=== PATIENT | female | born 1930 | race Caucasian/White ===

== ENCOUNTER 2017-12-24 21:37 | Inpatient (IN) | payer OTHER ==
[~2017-12-24] VITALS: Ht 154.9 cm; Wt 58.6 kg
[~2017-12-24 21:37] MED LIST: ASPI-319 PO; ATEN-173 PO; ATV5 PO; CARB200T PO; CHOL100010 PO; CLTP PO; FRS/40 PO; LEVO125T39 PO; LISI10TA PO; MECL25TA2 PO; SERT-234 PO
[2017-12-24] MEDS ORDERED: ONDANSETRON INJ 2 MG/ML 2 ML VIAL IV STA (21:57)
[2017-12-24] MEDS ORDERED: MoRPHine SULFATE 4 MG/ML 1 ML CARP\\VIAL IV STA (21:57)
[2017-12-24] MEDS ORDERED: PRED10TA PO (22:40)
[2017-12-24] MEDS ORDERED: CALCTAB7 PO (22:40)
[2017-12-24] MEDS ORDERED: TNR50 PO (22:40)
[2017-12-24] MEDS ORDERED: LEVO125T72 PO (22:40)
[2017-12-24] MEDS ORDERED: OMEP-331 PO (22:40)
[2017-12-24] MEDS ORDERED: MECL1TAB42 PO (22:40)
[2017-12-24] MEDS ORDERED: ACET1TAB84 PO (22:40)
[2017-12-24] MEDS ORDERED: ATV5 PO (22:40)
[2017-12-24] MEDS ORDERED: TRAM-10 PO (22:40)
[2017-12-24] MEDS ORDERED: CHOL1CAP27 PO (22:40)
[2017-12-24 22:49] LABS: BASO % 0.1 %; BASO ABS # 0.01 K/uL (0-0.2); EOS % 1.1 %; EOS ABS # 0.12 K/uL (0-0.5); HEMATOCRIT 30.2 % (37-47); IG# 0.05 K/uL (0.00-0.02); LYMPH ABS # 1.26 K/uL (1.2-3.4); MEAN CELL VOLUME 90.4 fL (80-100); MEAN CORPUSCULAR HEMOGLOBIN 29.9 pg (25-34); MEAN CORPUSCULAR HGB CONC 33.1 g/dl (32-36); MEAN PLATELET VOLUME 8.8 fL (7.4-10.4); MONO % 10.5 %; NEUT % 76.9 %; NEUT ABS # 8.77 K/uL (1.4-6.5); PLATELET COUNT 226 K/uL (130-400); RED CELL DISTRIBUTION WIDTH CV 14.1 % (11.5-14.5); RED CELL DISTRIBUTION WIDTH SD 47.1 fL (36.4-46.3); WHITE BLOOD COUNT 11.41 K/uL (4.8-10.8)
[2017-12-24 22:50] LABS: ALBUMIN 3.1 gm/dl (3.4-5.0); CALCIUM 8.6 mg/dl (8.5-10.1); CREATININE 1.15 mg/dl (0.60-1.20); POTASSIUM 4.2 mmol/L (3.5-5.1)
[2017-12-24 22:53] LABS: TOTAL PROTEIN 6.6 gm/dl (6.4-8.2)
--- NOTE | 2017-12-24 23:11 | DIAGNOSTIC IMAGING REPORT ---
SINGLE VIEW PELVIS; 2 VIEWS RIGHT HIP CLINICAL HISTORY: Right hip pain. Fall. FINDINGS: An AP view of the pelvis with AP and frog-leg views of the right hip and femur are obtained. No prior studies are available for comparison at the time of dictation. The skeletal structures are osteopenic. Subtle nondistracted right pubic ring fractures are suspected. There are chronic appearing left pubic ring fractures. There is chronic posttraumatic deformity of the right femoral shaft with intertrochanteric and intramedullary nails in place. There is no radiographic evidence of right femoral fracture. Orthopedic hardware appears intact. The left hip is intact as imaged. Moderate arthritic change and joint space narrowing is seen in the hips. Lumbosacral spondylosis is partially visualized. Sclerotic change is noted in the sacroiliac joints. There are numerous pelvic phleboliths. No bowel obstruction is seen. The soft tissues of the right thigh are normal as imaged. IMPRESSION: 1. Suspect acute nondistracted right pubic ring fractures. 2. No additional acute fracture is identified involving the hips or bony pelvis. 3. Chronic posttraumatic deformity and postoperative change is noted in the right femur. 4. Osteopenia and degenerative change as above. Electronically signed by: Avel Cook M.D. 12/24/2017 11:10 PM Dictated Date/Time: 12/24/2017 11:06 PM
--- NOTE | 2017-12-24 23:13 | DIAGNOSTIC IMAGING REPORT ---
LUMBAR SPINE 3 VIEWS CLINICAL HISTORY: Fall. FINDINGS: AP, lateral, and coned-down views of the lumbar spine are obtained. No prior studies are available for comparison at the time of dictation. The skeletal structures are osteopenic. There is a moderate and age indeterminant compression deformity of L1. No retropulsed fragments are identified. Vertebral body height is otherwise maintained throughout the lumbar spine. Minimal anterolisthesis is seen at L4-L5. Alignment is otherwise preserved. Hyperlordosis is noted. Anterior osteophytes are seen throughout. The transverse and spinous processes are intact as visualized. There is mild to moderate lumbar levocurvature centered at L3. Advanced facet arthropathy seen in the lower lumbar region. There is mild to moderate disc space narrowing seen at all lumbar levels. The bony pelvis is intact as imaged. Sclerotic change is noted in the sacroiliac joints. Compression deformities are also seen in the lower thoracic spine. No bowel obstruction is identified. Cholecystectomy clips are observed. The heart is enlarged. IMPRESSION: 1. There is a moderate and age indeterminant compression deformity of L1. Additional age indeterminant compression deformities are noted in the lower thoracic spine on the frontal view. Clinical correlation will be required. 2. Osteopenia with lumbosacral spondylosis and scoliosis as above. Electronically signed by: Avel Cook M.D. 12/24/2017 11:12 PM Dictated Date/Time: 12/24/2017 11:10 PM
--- NOTE | 2017-12-24 23:20 | DIAGNOSTIC IMAGING REPORT ---
SINGLE VIEW CHEST CLINICAL HISTORY: Fall. FINDINGS: An AP, portable, upright chest radiograph is compared to study dated 05/11/2010. The examination is degraded by portable technique and apical lordotic positioning. The heart is enlarged and there is atherosclerotic calcification of the thoracic aorta. The pulmonary vasculature is noncongested. Chronic interstitial thickening is similar to previous. There is left basilar atelectasis. No airspace consolidation or large pleural effusion is identified. No pneumothorax is seen. The skeletal structures are osteopenic. There is chronic posttraumatic deformity of the proximal humeri with advanced degenerative change involving the shoulders. Degenerative change and scoliosis are noted in the thoracic spine. Cholecystectomy clips are identified in the right upper quadrant. IMPRESSION: Cardiomegaly with no acute cardiopulmonary abnormality. Electronically signed by: Avel Cook M.D. 12/24/2017 11:18 PM Dictated Date/Time: 12/24/2017 11:17 PM
[2017-12-25] VITALS (10 sets, daily range): BP systolic 67–149; BP diastolic 34–75; PULSE 67–88; TEMP 36.7–37.2; O2SAT 90–98; Ht 154.9 cm; Wt 58.6 kg
[2017-12-25] MEDS ORDERED: FUROSEMIDE 20 MG TAB PO PRN (00:30)
[2017-12-25] MEDS ORDERED: ONDANSETRON INJ 2 MG/ML 2 ML VIAL IV PRN (00:30)
[2017-12-25] MEDS ORDERED: TRAMADOL HCL 50 MG TAB PO PRN (00:30)
[2017-12-25] MEDS ORDERED: MoRPHine SULFATE 2 MG/ML CARP IV PRN (00:30)
[2017-12-25] MEDS ORDERED: POLYETHYLENE (MIRALAX) 17 GM PACK PO PRN (00:30)
[2017-12-25] MEDS ORDERED: SODIUM CHLORIDE 0.9% 1000ML 1,000 ML IV SCH (00:30)
[2017-12-25] MEDS ORDERED: ALUMINUM/MAGNESIUM/SIMETH (MAALOX MAX) 30 ML UDC PO PRN (00:30)
[2017-12-25] MEDS ORDERED: MECLIZINE HCL 25 MG TAB PO PRN (00:30)
[2017-12-25] MEDS ORDERED: CARB200T PO (00:32)
[2017-12-25] MEDS ORDERED: ATV5 PO (00:32)
--- NOTE | 2017-12-25 00:44 | EMERGENCY ROOM VISIT NOTE ---
History Report prepared by Yvette: Cricket Guerrero Under the Supervision of: Dr. Zain Nieves D.O. First contact with patient: 21:46 Chief Complaint: FALL Stated Complaint: FALL, HIP/PELVIC PAIN History of Present Illness The patient is a 87 year old female who presents to the Emergency Room following a falling episode that occurred immediately prior to arrival. The patient states that she was "hanging clothes in her closet" when she lost her balance and suffered a mechanical fall. The patient is complaining of constant pain in the right groin and right pelvic area. Pain is a 0 out of 10 without movement. She is unable to walk. She was not able to ambulate following the fall. She did not hit her head, and is not currently having head or neck pain. She is not on any blood thinners. She denies any change in vision, fevers, chest pain, shortness of breath, nausea, vomiting, diarrhea, pain with urination , and melena Source of History: patient Onset: Immediatley prior to arrival Position: leg (right groin, hip, pelvis) Quality: other (Right hip pain from traumatic fall) Timing: constant Associated Symptoms: No LOC, No headache, No neck pain Review of Systems See HPI for pertinent positives & negatives. A total of 10 systems reviewed and were otherwise negative. Past Medical & Surgical Medical Problems: (1) Fall (2) Hypertension (3) Pelvic fracture Surgical Problems: (1) History of cholecystectomy Hypertension Family History Diabetes mellitus Heart disease Hypertension Social History Smoking Status: Never Smoker Drug Use: none Occupation Status: retired Current/Historical Medications Scheduled Acetaminophen (Tylenol Arthritis Ext Rel), 650 MG PO HS Aspirin Enteric Coated (Ecotrin Or Generic), 81 MG PO DAILY Atenolol (Atenolol), 25 MG PO QAM Calcium Carbonate-Vitamin D W/ (Caltrate 600 Plus), 1 TAB PO BID Carbamazepine (Tegretol), 100 MG PO BID Cholecalciferol (D3), 1,000 UNITS PO QAM Levothyroxine Sodium (Synthroid), 125 MCG PO QAM Lisinopril (Prinivil), 5 MG PO QAM Omeprazole (Omeprazole Dr), 20 MG PO QAM Prednisone (Prednisone), Unknown Dose PO DAILY Sertraline (Zoloft), 1 TAB PO DAILY Scheduled PRN Furosemide (Lasix), 0.5-1 TAB PO DAILY PRN for FLUID RETENTION Lorazepam (Lorazepam), 0.5 MG PO BID PRN for Anxiety/Insomnia Meclizine Hcl (Meclizine Hcl), 25 MG PO TID PRN for Dizziness or Vertigo Tramadol (Ultram), 50 MG PO Q6H PRN for Migraine Allergies Coded Allergies: NO KNOWN DRUG ALLERGIES (Verified Allergy, Unknown, ., 12/25/17) Anesthetics, Amide (Verified Adverse Reaction, Intermediate, ANESTHETICS - - "makes me sick", 12/25/17) Physical Exam Vital Signs Date Time Temp Pulse Resp B/P (MAP) Pulse Ox O2 Delivery O2 Flow Rate FiO2 12/24/17 23:01 65 14 129/65 98 Room Air 12/24/17 22:17 66 12/24/17 21:43 36.7 72 20 126/68 96 Room Air Physical Exam GENERAL: alert, well appearing, well nourished, no distress, non-toxic HEAD: normal cephalic, atraumatic EYE EXAM: normal conjunctiva, PERRL and EOM's grossly intact OROPHARYNX: no exudate, no erythema, lips, buccal mucosa, and tongue normal and mucous membranes are moist EARS: TMs clear b/l NECK: supple, no nuchal rigidity, no adenopathy, non-tender CHEST: stable to compression anteriorly and posteriorly LUNGS: clear to auscultation. Normal chest wall mechanics HEART: no murmurs, S1 normal and S2 normal ABDOMEN: abdomen soft, non-tender, normo-active bowel sounds, no masses, no rebound or guarding. PELVIS: Tender to palpation over right pubic ring. BACK: Back is symmetrical on inspection and there is no deformity, no midline tenderness, no CVA tenderness. UPPER EXTREMITIES: full active and passive range of motion of all joints without tenderness to palpation LOWER EXTREMITIES: full active and passive range of motion of all joints without tenderness to palpation NEURO EXAM: Normal sensorium, cranial nerves II-XII grossly intact, normal speech, no gross weakness of arms, no gross weakness of legs. GCS: 15. Medical Decision & Procedures ER Provider Diagnostic Interpretation: Radiology results as stated below per my review and the radiologist's interpretation: SINGLE VIEW PELVIS; 2 VIEWS RIGHT HIP CLINICAL HISTORY: Right hip pain. Fall. FINDINGS: An AP view of the pelvis with AP and frog-leg views of the right hip and femur are obtained. No prior studies are available for comparison at the time of dictation. The skeletal structures are osteopenic. Subtle nondistracted right pubic ring fractures are suspected. There are chronic appearing left pubic ring fractures. There is chronic posttraumatic deformity of the right femoral shaft with intertrochanteric and intramedullary nails in place. There is no radiographic evidence of right femoral fracture. Orthopedic hardware appears intact. The left hip is intact as imaged. Moderate arthritic change and joint space narrowing is seen in the hips. Lumbosacral spondylosis is partially visualized. Sclerotic change is noted in the sacroiliac joints. There are numerous pelvic phleboliths. No bowel obstruction is seen. The soft tissues of the right thigh are normal as imaged. IMPRESSION: 1. Suspect acute nondistracted right pubic ring fractures. 2. No additional acute fracture is identified involving the hips or bony pelvis. 3. Chronic posttraumatic deformity and postoperative change is noted in the right femur. 4. Osteopenia and degenerative change as above. Electronically signed by: Avel Cook M.D. 12/24/2017 11:10 PM Dictated Date/Time: 12/24/2017 11:06 PM SINGLE VIEW CHEST CLINICAL HISTORY: Fall. FINDINGS: An AP, portable, upright chest radiograph is compared to study dated 05/11/2010. The examination is degraded by portable technique and apical lordotic positioning. The heart is enlarged and there is atherosclerotic calcification of the thoracic aorta. The pulmonary vasculature is noncongested. Chronic interstitial thickening is similar to previous. There is left basilar atelectasis. No airspace consolidation or large pleural effusion is identified. No pneumothorax is seen. The skeletal structures are osteopenic. There is chronic posttraumatic deformity of the proximal humeri with advanced degenerative change involving the shoulders. Degenerative change and scoliosis are noted in the thoracic spine. Cholecystectomy clips are identified in the right upper quadrant. IMPRESSION: Cardiomegaly with no acute cardiopulmonary abnormality. Electronically signed by: Avel Cook M.D. 12/24/2017 11:18 PM Dictated Date/Time: 12/24/2017 11:17 PM LUMBAR SPINE 3 VIEWS CLINICAL HISTORY: Fall. FINDINGS: AP, lateral, and coned-down views of the lumbar spine are obtained. No prior studies are available for comparison at the time of dictation. The skeletal structures are osteopenic. There is a moderate and age indeterminant compression deformity of L1. No retropulsed fragments are identified. Vertebral body height is otherwise maintained throughout the lumbar spine. Minimal anterolisthesis is seen at L4-L5. Alignment is otherwise preserved. Hyperlordosis is noted. Anterior osteophytes are seen throughout. The transverse and spinous processes are intact as visualized. There is mild to moderate lumbar levocurvature centered at L3. Advanced facet arthropathy seen in the lower lumbar region. There is mild to moderate disc space narrowing seen at all lumbar levels. The bony pelvis is intact as imaged. Sclerotic change is noted in the sacroiliac joints. Compression deformities are also seen in the lower thoracic spine. No bowel obstruction is identified. Cholecystectomy clips are observed. The heart is enlarged. IMPRESSION: 1. There is a moderate and age indeterminant compression deformity of L1. Additional age indeterminant compression deformities are noted in the lower thoracic spine on the frontal view. Clinical correlation will be required. 2. Osteopenia with lumbosacral spondylosis and scoliosis as above. Electronically signed by: Avel Cook M.D. 12/24/2017 11:12 PM Dictated Date/Time: 12/24/2017 11:10 PM Laboratory Results 12/24/17 22:10 Red Blood Count 3.34, Mean Corpuscular Volume 90.4, Mean Corpuscular Hemoglobin 29.9, Mean Corpuscular Hemoglobin Concent 33.1, Mean Platelet Volume 8.8, Neutrophils (%) (Auto) 76.9, Lymphocytes (%) (Auto) 11.0, Monocytes (%) (Auto) 10.5, Eosinophils (%) (Auto) 1.1, Basophils (%) (Auto) 0.1, Neutrophils # (Auto ) 8.77, Lymphocytes # (Auto) 1.26, Monocytes # (Auto) 1.20, Eosinophils # (Auto ) 0.12, Basophils # (Auto) 0.01 12/24/17 22:10 Test 12/24/17 22:10 White Blood Count 11.41 K/uL (4.8-10.8) Red Blood Count 3.34 M/uL (4.2-5.4) Hemoglobin 10.0 g/dL (12.0-16.0) Hematocrit 30.2 % (37-47) Mean Corpuscular Volume 90.4 fL (80-100) Mean Corpuscular Hemoglobin 29.9 pg (25-34) Mean Corpuscular Hemoglobin Concent 33.1 g/dl (32-36) Platelet Count 226 K/uL (130-400) Mean Platelet Volume 8.8 fL (7.4-10.4) Neutrophils (%) (Auto) 76.9 % Lymphocytes (%) (Auto) 11.0 % Monocytes (%) (Auto) 10.5 % Eosinophils (%) (Auto) 1.1 % Basophils (%) (Auto) 0.1 % Neutrophils # (Auto) 8.77 K/uL (1.4-6.5) Lymphocytes # (Auto) 1.26 K/uL (1.2-3.4) Monocytes # (Auto) 1.20 K/uL (0.11-0.59) Eosinophils # (Auto) 0.12 K/uL (0-0.5) Basophils # (Auto) 0.01 K/uL (0-0.2) RDW Standard Deviation 47.1 fL (36.4-46.3) RDW Coefficient of Variation 14.1 % (11.5-14.5) Immature Granulocyte % (Auto) 0.4 % Immature Granulocyte # (Auto) 0.05 K/uL (0.00-0.02) Anion Gap 5.0 mmol/L (3-11) Est Creatinine Clear Calc Drug Dose 28.9 ml/min Estimated GFR () 49.5 Estimated GFR (Non- 42.7 BUN/Creatinine Ratio 33.0 (10-20) Calcium Level 8.6 mg/dl (8.5-10.1) Total Bilirubin 0.4 mg/dl (0.2-1) Direct Bilirubin 0.1 mg/dl (0-0.2) Aspartate Amino Transf (AST/SGOT) 14 U/L (15-37) Alanine Aminotransferase (ALT/SGPT) 19 U/L (12-78) Alkaline Phosphatase 54 U/L (45-117) Total Protein 6.6 gm/dl (6.4-8.2) Albumin 3.1 gm/dl (3.4-5.0) Laboratory results per my review. Medications Administered Medications (Trade) Dose Ordered Sig/Gris Route Start Time Stop Time Status Last Admin Dose Admin Morphine Sulfate (MoRPHine SULFATE INJ) 4 mg NOW STAT IV 12/24/17 21:57 12/24/17 21:58 DC 12/24/17 22:15 4 MG Ondansetron HCl (Zofran Inj) 4 mg NOW STAT IV 12/24/17 21:57 12/24/17 21:58 DC 12/24/17 22:15 4 MG ED Course ED COURSE: Vital signs were reviewed and showed normal vitals. The patients medical record was reviewed The above diagnostic studies were performed and reviewed. ED treatments and interventions as stated above. 2150: The patient was evaluated in room A4B. A complete history and physical examination was performed. 2156: Ordered Zofran 4 mg IV, Morphine Sulfate 4 mg IV. 2337: I discussed the case with Dr. Bettye Burnham. she will evaluate for further treatment. 0005: I discussed the case with Dr. [facility]. 0010: Upon reevaluation, the patient is resting in bed.I discussed my findings with the patient and she understands and agrees with the treatment plan. Based on the patients age, coexisting illnesses, exam and lab findings the decision to treat as an inpatient was made. The patient remained stable while under my care. The patient will be evaluated for further management. Medical Decision Differential diagnoses include major intracranial, cervical, spinal, thoracic, abdominal, pelvic and neurologic injury. Fracture, contusion, sprain, strain, laceration, abrasions included as well. Patient is a 87-year-old female who presents the ER after mechanical fall onto her right hip. She denies any head trauma or neck pain. CBC along with BMP, LFTs are unremarkable. No blood thinners which she declines. X-rays of the pelvis and hip show a right pubic ring fracture. Questionable L1 compression fracture as well. Patient was given IV narcotics. She is unable to ambulate. She was discussed with orthopedics and internal medicine for observation. Medication Reconcilliation Current Medication List: was personally reviewed by me Blood Pressure Screening Patient's blood pressure: Normal blood pressure Consults Time Called: 2334 Consulting Physician: Dr. Bettye Burnham Returned Call: [phone] I discussed the case with Dr. Bettye Burnham. she will evaluate for further treatment. Additional Consults: Time Called: 0000 Consulted Physician: Dr. [facility] Returned Call: 0005 Additional Comments: I discussed the case with Dr. Willis - Orthopedics. Impression Primary Impression: Pubic ramus fracture Additional Impression: Compression fracture Scribe Attestation The scribe's documentation has been prepared under my direction and personally reviewed by me in its entirety. I confirm that the note above accurately reflects all work, treatment, procedures, and medical decision making performed by me. Departure Information Dispostion Being Evaluated By Hospitalist Prescriptions Lorazepam (Lorazepam) 0.5 Mg Tab 0.5 MG PO BID Y for Anxiety/Insomnia, #10 Prov: Angus Wen MD 12/25/17 Carbamazepine (Tegretol) 200 Mg Tab 100 MG PO BID, #14 Prov: Angus Wen MD 12/25/17 Referrals Lucas Marks M.D. (PCP) Patient Instructions My [facility] Problem Qualifiers Primary Impression: Pubic ramus fracture Encounter type: initial encounter Fracture type: closed Laterality: right Qualified Codes: S32.591A - Other specified fracture of right pubis, initial encounter for closed fracture
--- NOTE | 2017-12-25 02:44 | HISTORY & PHYSICAL EXAMINATION ---
DATE OF ADMISSION: 12/25/2017 CHIEF COMPLAINT: Status post fall and pelvic fracture. HISTORY OF PRESENT ILLNESS: This is an 87-year-old female with past medical history significant for depression, anxiety, hypothyroidism, trigeminal neuralgia, senile osteoporosis, hypertension, migraines, osteoarthritis of multiple joints, anxiety trait, Raynaud's syndrome, and now chronic kidney disease stage III, hiatal hernia, history of compression fracture of the spine, anemia of chronic renal failure, now presents with fall and pelvic fracture. Patient says she was in her closet putting her clothes when she accidentally slipped and fell down and no loss of consciousness, but when she wanted to get up, there was severe pain in her right groin region and she was brought to the ER and imaging showed acute nondisplaced right pubic ring fractures and lumbar spine x-ray shows age indeterminate compression fracture of L1. Patient is received morphine in the ER and currently pain is under control. Patient denies any headaches. No dizziness, no blurred visions, no earache, no runny nose, no sore throat, no difficulty swallowing. No chest pain, no shortness of breath, no cough, no fever, no chills, no nausea, no vomiting, no abdominal pain. Appetite is okay. Ambulates with a cane when she goes outside, but at home she ambulates without any help. Sometimes she has runny bowel movements but no blood in the stools. Normal bladder movements. No blood in the urine. No burning micturition. No swelling of the legs. No skin rash. Currently, resting comfortably and hemodynamically stable. ALLERGIES: ANESTHETICS. PAST MEDICAL HISTORY: As mentioned above. PAST SURGICAL HISTORY: Repair of the right femur fracture, laparoscopic cholecystectomy, open reduction internal fixation of the malunited angulated distal radius fracture. MEDICATIONS: Patient currently on Maalox as needed, aspirin 81 mg p.o. daily, atenolol 25 mg p.o. daily, calcium, Tums 500 mg p.o. b.i.d. p.r.n., Caltrate 600+ tablets daily, Tegretol 100 mg p.o. b.i.d., Lasix 20 mg p.o. daily p.r.n., levothyroxine 125 mcg p.o. daily, lisinopril 5 mg p.o. daily, Ativan 0.5 mg p.o. b.i.d. p.r.n., omeprazole 20 mg p.o. daily, Phenergan 25 mg p.o. q. 6 hours p.r.n., Zoloft 100 mg p.o. daily, tramadol 50 mg p.o. q. 6 hours p.r.n., Tylenol Arthritis 650 mg p.o. at bedtime, vitamin D 1000 units p.o. daily. FAMILY HISTORY: Significant for mother had diabetes, heart disorder, hypertension, thyroid disorder. Father had heart disorder. Daughter has hypertension, son has depression. SOCIAL HISTORY: Currently living with her son. No smoke history, no alcohol history, no drug use. REVIEW OF SYMPTOMS: As per HPI. Rest of review of symptoms negative. PHYSICAL EXAMINATION: GENERAL: Patient is old and frail, not in distress. VITAL SIGNS: Temperature 36.7, pulse 65, respiratory rate 14, blood pressure 127/65, oxygen 98% room air. HEENT: No pallor, no icterus. Pupils equal, round, and reactive to light. NECK: No JVD, no neck masses, no carotid bruit. CARDIOVASCULAR: S1, S2 heard. Regular rate and rhythm, no murmur, no gallop. RESPIRATORY SYSTEM: Clear to auscultation bilaterally. No wheezing, no crackles. ABDOMEN: Soft, bowel sounds present, nontender. No distention. CENTRAL NERVOUS SYSTEM: Cranial nerves II-XII grossly intact. Nonfocal. EXTREMITIES: No edema, no erythema. Able to lift her left upper extremity, but not able to lift her right lower extremity. LABORATORY DATA: WBC 11.4, hemoglobin 10, hematocrit 30.2, platelets 226. Sodium 136, potassium 4.2, chloride 103, bicarb 28, BUN 38, creatinine 1.1, serum glucose 117, calcium 8.6, total bilirubin 0.4, direct bilirubin 0.1, AST 14, ALT 19, alkaline phosphatase 54. IMAGING DATA: Lumbar spine x-ray, moderate and age-indeterminate compression deformity of L1. Chest x-ray, cardiomegaly, no acute pulmonary disease, no acute findings. Hip and pelvic x-ray shows acute nondisplaced right pubic ring fractures. No additional acute fracture identified in hips or bony pelvis. Chronic posttraumatic deformity and postoperative changes noted in the right femur. Osteopenia and degenerative changes . ASSESSMENT AND PLAN: This 87-year-old female presents status post mechanical fall and right pelvic fracture. 1. Status post mechanical fall, right pelvic fracture. Patient has history of fall in the past and states around 2009 and has had right femur fracture and also at that time had left left radius fracture. Lives with her son. She just ambulates okay at home. pain control, PT/OT. Ortho consult for further recommendation and social service to help with discharge planning. Monitor in the medical floor. 2. History of hypertension. Continue her atenolol and lisinopril. We will monitor the blood pressure. 3. History of depression and anxiety. Continue Zoloft and Ativan p.r.n. 4. History of migraine, on tramadol p.r.n. 5. History of chronic kidney disease stage III. We will follow the labs. 6. History of anemia of chronic disease. Hemoglobin is around 10 which is around baseline. We will monitor the labs. 7. History of trigeminal neuralgia, on Tegretol. 8. Deep venous thrombosis prophylaxis, heparin subQ. 9. Disposition: Admit to medical floor. PT/OT prior to discharge and social service to help with discharge planning. 10. Code status. Patient does not want to talk about it presently as she now got morphine. She will be full code for now. MTDD
[2017-12-25 05:10] LABS: BASO % 0.2 %; BASO ABS # 0.02 K/uL (0-0.2); EOS % 3.7 %; EOS ABS # 0.36 K/uL (0-0.5); HEMATOCRIT 30.5 % (37-47); HEMOGLOBIN 9.9 g/dL (12.0-16.0); IG# 0.02 K/uL (0.00-0.02); LYMPH % 18.2 %; LYMPH ABS # 1.76 K/uL (1.2-3.4); MEAN CELL VOLUME 90.5 fL (80-100); MEAN CORPUSCULAR HEMOGLOBIN 29.4 pg (25-34); MEAN CORPUSCULAR HGB CONC 32.5 g/dl (32-36); MEAN PLATELET VOLUME 8.4 fL (7.4-10.4); MONO % 9.6 %; MONO ABS # 0.93 K/uL (0.11-0.59); NEUT % 68.1 %; PLATELET COUNT 194 K/uL (130-400); RED CELL DISTRIBUTION WIDTH CV 14.4 % (11.5-14.5); RED CELL DISTRIBUTION WIDTH SD 47.8 fL (36.4-46.3); WHITE BLOOD COUNT 9.69 K/uL (4.8-10.8)
[2017-12-25 05:46] LABS: CALCIUM 8.9 mg/dl (8.5-10.1); CREATININE 1.02 mg/dl (0.60-1.20); POTASSIUM 4.5 mmol/L (3.5-5.1)
[2017-12-25] MEDS: LEVOTHYROXINE 125 MCG TAB PO SCH (06:08)
[2017-12-25] MEDS: HEPARIN SOD 5000 UNIT/0.5 ML CARP SQ SCH ×2 (06:26→21:02)
[2017-12-25] MEDS: ASPIRIN 81 MG ECTAB PO SCH (08:55)
[2017-12-25] MEDS: PANTOprazole SOD 40 MG TAB PO SCH (08:55)
[2017-12-25] MEDS: LORAZEPAM 0.5 MG TAB PO PRN ×2 (08:55→21:01)
[2017-12-25] MEDS: TRAMADOL HCL 50 MG TAB PO PRN (08:55)
[2017-12-25] MEDS: CHOLECALCIFEROL 1000 INTER.UNIT TAB PO SCH (08:55)
[2017-12-25] MEDS: CARBAMAZEPINE 200 MG TAB PO SCH ×2 (08:56→20:09)
[2017-12-25] MEDS: SERTRALINE HCL 100 MG TAB PO SCH (08:57)
[2017-12-25] MEDS: CALCIUM 600MG + VIT D 400 IU TAB PO SCH ×2 (08:58→20:08)
[2017-12-25] MEDS ORDERED: LORAZEPAM 0.5 MG TAB PO SCH (09:00)
[2017-12-25] MEDS ORDERED: CARBAMAZEPINE 200 MG TAB PO SCH (09:00)
[2017-12-25] MEDS ORDERED: LISINOPRIL 10 MG TAB PO SCH (09:00)
[2017-12-25] MEDS ORDERED: NURSING VERBAL MED ORDER ONE ×3 (09:30→14:30)
--- NOTE | 2017-12-25 10:26 | CONSULTATION REPORT ---
DATE OF CONSULTATION: 12/25/2017 REASON FOR CONSULT: Pelvic fracture. HISTORY OF PRESENT ILLNESS: The patient is an 87-year-old white female who lives at home with her son and states that yesterday she was putting hangers back up on to a close christin and she was somewhat short and as she tried to reach to put the chart changer up on the christin, she lost her balance and fell on to her right side. She had immediate pain in her groin and was unable to ambulate. She was brought to the Emergency Room, seen by the staff and x-rays were taken. Hip and pelvis films showed the patient is status post a right TFN by Dr. Willis in the past but also showed a minimally displaced right pubic ring fracture. She was thusly admitted for further care. We have been asked to see her for a pelvic fracture. PAST MEDICAL HISTORY: Depression, anxiety, hypothyroidism, trigeminal neuralgia, osteoporosis, hypertension, migraine headaches, osteoarthritis, Raynaud's syndrome, chronic kidney disease stage III, hiatal hernia, history of compression fractures of the spine. PAST SURGICAL HISTORY: Right TFN done in 2009, history of cholecystectomy. She had a closed reduction and application of external fixator to the right wrist in the past, ORIF left proximal humerus fracture. Per her daughter in the past from old records, states that she had brain surgery due to trigeminal neuralgia, cataract removal. FAMILY HISTORY: Mother had diabetes, heart disease, hypertension, thyroid disorder. Father had a history of heart disease. Daughter has hypertension. Son has depression. SOCIAL HISTORY: The patient currently lives with her son whom she states that does work during the day and a daughter who lives just [address] from them. She does not have any history of using tobacco or alcohol. MEDICATIONS: Acetaminophen or Tylenol Arthritis extended release 600 mg p.o. at bedtime, aspirin 81 mg p.o. daily, atenolol 25 mg p.o. q.a.m., Caltrate 600 plus one tab p.o. b.i.d., Tegretol 100 mg p.o. b.i.d., vitamin D 3000 units p.o. q.a.m., furosemide 40 mg half to 1 tab p.o. daily p.r.n. fluid retention, levothyroxine 125 mcg p.o. q.a.m., lisinopril 5 mg p.o. q.a.m., lorazepam 0.5 mg p.o. b.i.d. p.r.n. anxiety, meclizine 25 mg p.o. t.i.d. p.r.n. dizziness or vertigo, omeprazole 20 mg p.o. q.a.m., Medrol Dosepak started on 12/19/2017, sertraline 100 mg p.o. daily, Ultram 50 mg p.o. q. 6 hours p.r.n. migraine headache. ALLERGIES: She states that some anesthesias cause her nausea; otherwise NKDA. REVIEW OF SYSTEMS: As per admitting history and physical. PHYSICAL EXAMINATION: VITAL SIGNS: This morning showed temperature 36.7, pulse 67, respirations 16, BP 129/74, pulse ox 98 on room air. GENERAL: The patient is an elderly white female who appears her stated age and appears comfortable. She is pleasant and cooperative and answers questions appropriately. She is in no acute distress. EXTREMITIES: On examination of her right lower extremity, she has no areas of abrasions or cuts noted from the fall. Taking her through gentle range of motion of the right lower extremity, she is able to undergo internal and external rotation of the hip with minimal discomfort. She is able to gently flex the hip at this time with mild pain; however, has moderate pain with coming back into extension. She has mild pain on abduction of the hip at this time and has increased pain with adduction. She denies right knee pain and has good range of motion of right ankle and toes at this time and denies any decreased sensation. Left lower extremity is essentially benign at this time, it is nontender at the hip, knee and ankle and range of motion is intact. Upper extremities, she notes some discomfort in her shoulders which is normal for her due to arthritis but nothing exacerbated. She is nontender at the elbows and wrist and range of motion of upper extremities is without discomfort to an extent with her shoulders. There is no gross motor or sensory loss at this time. Distal pulses are equal bilaterally of the upper extremities. DIAGNOSIS: Superior and inferior pubic ramus fracture, right side pelvis. PLAN: We will start the patient on physical therapy and occupational therapy, weightbearing as tolerated with a walker and see how she progresses. She will likely need a rehab facility versus jail facility prior to returning home. She is currently on tramadol and Morphine for pain control which could be adjusted as necessary. Thank you for this consult. I examined the patient, performed a thorough physical exam and reviewed her radiographic studies. I agree with the assessment and plan as set forth by Alejandro Crespo PA-C above. Thank you for the opportunity to consult in the care of this patient. Rick TRUONG
[2017-12-25] MEDS ORDERED: SODIUM CHLORIDE 0.9% 500ML 500 ML IV ONE (14:15)
--- NOTE | 2017-12-25 18:44 | Progress Note ---
Medicine Progress Note Date & Time of Visit: Dec 25, 2017 at 18:37. Subjective Please refer to H&P from this AM for more detail: Patient was seen and examined earlier today, daughter did come to the hospital during examination. Patient reports pain controlled at rest but hurts with movements. She has been non-weightbearing on the right today. She is agreeable to rehab if needed but would prefer home if she had a choice. No other complaints noted. After patient saw therapy, I was paged by nursing staff that the patient's bp went low and the patient was asymptomatic and remarked this occurred at home sometimes. Her BP responded to laying supine and Trendelenburg position, and improved further once IV fluids were administered. No other complaints noted. Will hold BP meds for now. Objective Last 8 Hrs Date Time Temp Pulse Resp B/P (MAP) Pulse Ox O2 Delivery O2 Flow Rate FiO2 12/25/17 16:27 99/60 (73) 12/25/17 14:42 37.2 69 16 93/56 (68) 90 Room Air 12/25/17 14:10 88/52 (64) 12/25/17 14:00 84 87/51 (63) 97 Room Air 12/25/17 13:55 81/45 (57) 12/25/17 13:52 78/45 (56) 12/25/17 13:50 67/34 (45) Physical Exam: GENERAL: Patient is in no acute distress. HEENT: No acute trauma, normocephalic, mucous membranes moist, no nasal congestion, no scleral icterus. NECK: No stridor, trachea is midline. LUNGS: Clear to auscultation bilaterally, no wheeze, no rhonchi, breath sounds equal. HEART: Without gallops or rubs, regular rate and rhythm. +loud VINCENT ABDOMEN: Soft, nontender, bowel sounds positive EXTREMITIES: No cyanosis or edema, moves all 4 extremities but pain with sitting up and bending in flexion or movement of her right leg NEUROLOGIC: Oriented x 3, no acute motor or sensory deficits, no focal weakness. SKIN: No rash, no jaundice, no diaphoresis. Laboratory Results: Last 24 Hours Test 12/24/17 22:10 12/25/17 05:03 White Blood Count 11.41 K/uL 9.69 K/uL Red Blood Count 3.34 M/uL 3.37 M/uL Hemoglobin 10.0 g/dL 9.9 g/dL Hematocrit 30.2 % 30.5 % Mean Corpuscular Volume 90.4 fL 90.5 fL Mean Corpuscular Hemoglobin 29.9 pg 29.4 pg Mean Corpuscular Hemoglobin Concent 33.1 g/dl 32.5 g/dl Platelet Count 226 K/uL 194 K/uL Mean Platelet Volume 8.8 fL 8.4 fL Neutrophils (%) (Auto) 76.9 % 68.1 % Lymphocytes (%) (Auto) 11.0 % 18.2 % Monocytes (%) (Auto) 10.5 % 9.6 % Eosinophils (%) (Auto) 1.1 % 3.7 % Basophils (%) (Auto) 0.1 % 0.2 % Neutrophils # (Auto) 8.77 K/uL 6.60 K/uL Lymphocytes # (Auto) 1.26 K/uL 1.76 K/uL Monocytes # (Auto) 1.20 K/uL 0.93 K/uL Eosinophils # (Auto) 0.12 K/uL 0.36 K/uL Basophils # (Auto) 0.01 K/uL 0.02 K/uL RDW Standard Deviation 47.1 fL 47.8 fL RDW Coefficient of Variation 14.1 % 14.4 % Immature Granulocyte % (Auto) 0.4 % 0.2 % Immature Granulocyte # (Auto) 0.05 K/uL 0.02 K/uL Sodium Level 136 mmol/L 135 mmol/L Potassium Level 4.2 mmol/L 4.5 mmol/L Chloride Level 103 mmol/L 105 mmol/L Carbon Dioxide Level 28 mmol/L 28 mmol/L Anion Gap 5.0 mmol/L 2.0 mmol/L Blood Urea Nitrogen 38 mg/dl 34 mg/dl Creatinine 1.15 mg/dl 1.02 mg/dl Est Creatinine Clear Calc Drug Dose 28.9 ml/min 32.0 ml/min Estimated GFR () 49.5 57.3 Estimated GFR (Non- 42.7 49.4 BUN/Creatinine Ratio 33.0 33.8 Random Glucose 117 mg/dl 102 mg/dl Calcium Level 8.6 mg/dl 8.9 mg/dl Total Bilirubin 0.4 mg/dl Direct Bilirubin 0.1 mg/dl Aspartate Amino Transf (AST/SGOT) 14 U/L Alanine Aminotransferase (ALT/SGPT) 19 U/L Alkaline Phosphatase 54 U/L Total Protein 6.6 gm/dl Albumin 3.1 gm/dl Prothrombin Time 10.6 SECONDS Prothromb Time International Ratio 1.0 Assessment & Plan From H&P this AM: 1. Status post mechanical fall, right pelvic fracture. Patient has history of fall in the past and states around 2009 and has had right femur fracture and also at that time had left left radius fracture. Lives with her son. She just ambulates okay at home. pain control, PT/OT. Ortho consult for further recommendation and social service to help with discharge planning. Monitor in the medical floor. 2. History of hypertension. Continue her atenolol and lisinopril. We will monitor the blood pressure. 3. History of depression and anxiety. Continue Zoloft and Ativan p.r.n. 4. History of migraine, on tramadol p.r.n. 5. History of chronic kidney disease stage III. We will follow the labs. 6. History of anemia of chronic disease. Hemoglobin is around 10 which is around baseline. We will monitor the labs. 7. History of trigeminal neuralgia, on Tegretol. Current Inpatient Medications: Current Inpatient Medications Medications (Trade) Dose Ordered Sig/Gris Route Start Time Stop Time Status Last Admin Dose Admin Heparin Sodium (Porcine) (Heparin Sq 5000 Unit/0.5ml) 5,000 unit Q8 SQ 12/25/17 06:00 01/24/18 05:59 Future hold 12/25/17 06:26 5,000 UNIT Acetaminophen (Tylenol Tab) 650 mg Q4H PRN PO 12/25/17 00:30 01/24/18 00:29 Al Hydrox/Mg Hydrox/Simethicone (Maalox Max Susp) 15 ml Q4H PRN PO 12/25/17 00:30 01/24/18 00:29 12/25/17 18:25 15 ML Polyethylene (Miralax Powder Packet) 17 gm DAILY PRN PO 12/25/17 00:30 01/24/18 00:29 Ondansetron HCl (Zofran Inj) 4 mg Q6H PRN IV 12/25/17 00:30 01/24/18 00:29 Aspirin (Ecotrin Tab) 81 mg DAILY PO 12/25/17 09:00 01/24/18 08:59 12/25/17 08:55 81 MG Calcium/Vitamin D (Caltrate Plus Tab) 1 tab BID PO 12/25/17 09:00 01/24/18 08:59 12/25/17 08:58 1 TAB Furosemide (Lasix Tab) 20 mg DAILY PRN PO 12/25/17 00:30 01/24/18 00:29 Levothyroxine Sodium (Synthroid Tab) 125 mcg DAILYBB PO 12/25/17 06:00 01/24/18 05:59 12/25/17 06:08 125 MCG Lisinopril (Zestril Tab) 5 mg QAM PO 12/25/17 09:00 01/24/18 08:59 Future Hold 12/25/17 08:56 5 MG Meclizine HCl (Antivert Tab) 25 mg TID PRN PO 12/25/17 00:30 01/24/18 00:29 Sertraline HCl (Zoloft Tab) 100 mg DAILY PO 12/25/17 09:00 01/24/18 08:59 12/25/17 08:57 100 MG Tramadol HCl (Ultram Tab) 50 mg Q6H PRN PO 12/25/17 00:30 01/24/18 00:29 12/25/17 08:55 50 MG Cholecalciferol (Vitamin D Tab) 1,000 inter.unit QAM PO 12/25/17 09:00 01/24/18 08:59 12/25/17 08:55 1,000 INTER.UNIT Pantoprazole Sodium (Protonix Tab) 40 mg QAM PO 12/25/17 09:00 01/24/18 08:59 12/25/17 08:55 40 MG Morphine Sulfate (MoRPHine SULFATE INJ) 2 mg Q4 PRN IV 12/25/17 00:30 01/08/18 00:29 Carbamazepine (Tegretol Tab) 100 mg BID PO 12/25/17 09:00 01/24/18 08:59 12/25/17 08:56 100 MG Lorazepam (Ativan Tab) 0.5 mg BID PRN PO 12/25/17 00:45 01/24/18 00:44 12/25/17 08:55 0.5 MG Atenolol (Tenormin Tab) 25 mg QPM PO 12/25/17 21:00 01/24/18 20:59 Future Hold
[2017-12-25] MEDS ORDERED: NON-FORMULARY MEDICATION (Acetaminophen (Tylenol Arthritis Ext Rel) 650 MG) PO SCH (21:00)
[2017-12-26] VITALS (7 sets, daily range): BP systolic 92–152; BP diastolic 61–72; PULSE 74–82; TEMP 36.6–37.3; O2SAT 96–98
[2017-12-26] MEDS: LEVOTHYROXINE 125 MCG TAB PO SCH (05:03)
[2017-12-26] MEDS: HEPARIN SOD 5000 UNIT/0.5 ML CARP SQ SCH ×3 (05:05→21:04)
[2017-12-26 06:02] LABS: BASO % 0.3 %; BASO ABS # 0.02 K/uL (0-0.2); EOS ABS # 0.47 K/uL (0-0.5); HEMATOCRIT 28.5 % (37-47); HEMOGLOBIN 9.2 g/dL (12.0-16.0); IG# 0.04 K/uL (0.00-0.02); LYMPH % 22.6 %; LYMPH ABS # 1.78 K/uL (1.2-3.4); MEAN CELL VOLUME 91.6 fL (80-100); MEAN CORPUSCULAR HEMOGLOBIN 29.6 pg (25-34); MEAN CORPUSCULAR HGB CONC 32.3 g/dl (32-36); MEAN PLATELET VOLUME 8.4 fL (7.4-10.4); MONO % 10.9 %; MONO ABS # 0.86 K/uL (0.11-0.59); NEUT % 59.7 %; NEUT ABS # 4.72 K/uL (1.4-6.5); PLATELET COUNT 181 K/uL (130-400); RED CELL DISTRIBUTION WIDTH CV 14.8 % (11.5-14.5); RED CELL DISTRIBUTION WIDTH SD 50.2 fL (36.4-46.3); WHITE BLOOD COUNT 7.89 K/uL (4.8-10.8)
[2017-12-26 06:37] LABS: CALCIUM 8.3 mg/dl (8.5-10.1); CREATININE 0.88 mg/dl (0.60-1.20); POTASSIUM 4.1 mmol/L (3.5-5.1)
[2017-12-26] MEDS: CHOLECALCIFEROL 1000 INTER.UNIT TAB PO SCH (09:31)
[2017-12-26] MEDS: ACETAMINOPHEN 325 MG TAB PO PRN (09:31)
[2017-12-26] MEDS: SERTRALINE HCL 100 MG TAB PO SCH (09:32)
[2017-12-26] MEDS: PANTOprazole SOD 40 MG TAB PO SCH (09:32)
[2017-12-26] MEDS: CARBAMAZEPINE 200 MG TAB PO SCH ×2 (09:33→20:56)
[2017-12-26] MEDS: CALCIUM 600MG + VIT D 400 IU TAB PO SCH ×2 (09:33→20:56)
[2017-12-26] MEDS: ASPIRIN 81 MG ECTAB PO SCH (09:34)
--- NOTE | 2017-12-26 10:30 | Clinical Documentation Query ---
ILEANA Knight : CLINICAL DOCUMENTATION QUERY Patient is an 87 year old female admitted for treatment of right pelvic fractures in the setting of ground level fall and senile osteoporosis. As appropriate, consider explicitly linking these clinical diagnoses as suggested below as this affects accurate DRG assignment. Thank you. In your clinical opinion is this patient being managed for: ( X ) Osteoporotic right pelvic fracture in the setting of ground level fall ( ) Not Agree ( ) Other explanation of clinical findings (Please Explain. If no explanation given, this would be considered a no response.) ( ) Unable to determine ( ) Need to Discuss (Please call CDS via extension or qliq. If no interaction occurs this is considered a no response.) The medical record reflects the following clinical findings, treatment, and risk factors. Clinical Indicators: As above Treatment: Orthopedic consultation, PT/OT, analgesia Risk Factors: Age, senile osteoporosis. Please clarify and document your clinical opinion in the progress notes and discharge summary. Terms such as "probable", "suspected", "likely", "questionable", "possible", or "still to be ruled out" are acceptable. IF IN AGREEMENT, YOU MUST DOCUMENT ABOVE DIAGNOSTIC STATEMENT IN DAILY PROGRESS NOTES AND DISCHARGE SUMMARY. This document is not part of the patient's record. Thank You, Sunny Mccurdy, RN [phone]
[2017-12-26] MEDS: TRAMADOL HCL 50 MG TAB PO PRN (12:35)
--- NOTE | 2017-12-26 16:03 | Progress Note ---
Medicine Progress Note Date & Time of Visit: December 26, 2017 at 15:57. Subjective seen resting in bed, comfortable in good spirits states right pain occurs only with movement/ambulation PRN Tramadol relieves the pain no leg weakness/numbness no dizziness upon standing/ambulating today denies chest pain, dyspnea, palpitations denies other symptoms Objective Last 8 Hrs Date Time Temp Pulse Resp B/P (MAP) Pulse Ox O2 Delivery O2 Flow Rate FiO2 12/26/17 15:26 36.6 74 16 152/71 (98) 98 Room Air 12/26/17 12:25 37.1 82 16 125/63 (83) 98 Room Air 12/26/17 12:02 98 Room Air 12/26/17 08:06 37.3 81 15 119/65 (83) 96 Room Air Physical Exam: General- oriented x 3, not in distress, speaks in sentences with no effort Head- atraumatic Eyes- PERRL, EOMI, anicteric ENT- oropharynx clear Neck- supple, no JVD, no adenopathy, no thyromegaly Lungs- clear to auscultation bilaterally Heart- regular rhythm; no murmur, normal rate Abdomen- normal bowel sounds, soft, nontender Extremities- no pretibial edema, no calf tenderness; peripheral pulses intact Neuro- alert, oriented x 3; no gross focal deficits Skin- warm & dry Laboratory Results: Last 24 Hours Test 12/25/17 18:30 12/26/17 05:40 Urine Color YELLOW Urine Appearance CLEAR Urine pH 5.0 Urine Specific [place] 1.016 Urine Protein NEG Urine Glucose (UA) NEG Urine Ketones NEG Urine Occult Blood NEG Urine Nitrite NEG Urine Bilirubin NEG Urine Urobilinogen NEG Urine Leukocyte Esterase NEG White Blood Count 7.89 K/uL Red Blood Count 3.11 M/uL Hemoglobin 9.2 g/dL Hematocrit 28.5 % Mean Corpuscular Volume 91.6 fL Mean Corpuscular Hemoglobin 29.6 pg Mean Corpuscular Hemoglobin Concent 32.3 g/dl Platelet Count 181 K/uL Mean Platelet Volume 8.4 fL Neutrophils (%) (Auto) 59.7 % Lymphocytes (%) (Auto) 22.6 % Monocytes (%) (Auto) 10.9 % Eosinophils (%) (Auto) 6.0 % Basophils (%) (Auto) 0.3 % Neutrophils # (Auto) 4.72 K/uL Lymphocytes # (Auto) 1.78 K/uL Monocytes # (Auto) 0.86 K/uL Eosinophils # (Auto) 0.47 K/uL Basophils # (Auto) 0.02 K/uL RDW Standard Deviation 50.2 fL RDW Coefficient of Variation 14.8 % Immature Granulocyte % (Auto) 0.5 % Immature Granulocyte # (Auto) 0.04 K/uL Sodium Level 139 mmol/L Potassium Level 4.1 mmol/L Chloride Level 107 mmol/L Carbon Dioxide Level 27 mmol/L Anion Gap 5.0 mmol/L Blood Urea Nitrogen 24 mg/dl Creatinine 0.88 mg/dl Est Creatinine Clear Calc Drug Dose 37.0 ml/min Estimated GFR () 68.5 Estimated GFR (Non- 59.1 BUN/Creatinine Ratio 26.6 Random Glucose 88 mg/dl Calcium Level 8.3 mg/dl Magnesium Level 1.8 mg/dl Assessment & Plan 1. Status post mechanical fall, right pelvic fracture. Ortho consulted, recommend conservative management Weight bearing as tolerated PT/OT recommending inpatient Rehab, Part Time on board continue PRN Tramadol 2. History of hypertension. BP was low yesterday- usual Atenolol and Lisinopril held resume Atenolol, at a reduced dose today, 12.5mg po daily hold Lisinopril monitor 3. History of depression and anxiety. Continue Zoloft and Ativan p.r.n. 4. History of migraine, on tramadol p.r.n. 5. History of chronic kidney disease stage III. stable 6. History of anemia of chronic disease. hg 9-10 7. History of trigeminal neuralgia, on Tegretol. Disposition PT/OT recommending inpatient Rehab Current Inpatient Medications: Current Inpatient Medications Medications (Trade) Dose Ordered Sig/Gris Route Start Time Stop Time Status Last Admin Dose Admin Heparin Sodium (Porcine) (Heparin Sq 5000 Unit/0.5ml) 5,000 unit Q8 SQ 12/25/17 06:00 01/24/18 05:59 Future hold 12/26/17 14:34 5,000 UNIT Acetaminophen (Tylenol Tab) 650 mg Q4H PRN PO 12/25/17 00:30 01/24/18 00:29 12/26/17 09:31 650 MG Al Hydrox/Mg Hydrox/Simethicone (Maalox Max Susp) 15 ml Q4H PRN PO 12/25/17 00:30 01/24/18 00:29 12/25/17 18:25 15 ML Polyethylene (Miralax Powder Packet) 17 gm DAILY PRN PO 12/25/17 00:30 01/24/18 00:29 Ondansetron HCl (Zofran Inj) 4 mg Q6H PRN IV 12/25/17 00:30 01/24/18 00:29 Aspirin (Ecotrin Tab) 81 mg DAILY PO 12/25/17 09:00 01/24/18 08:59 12/26/17 09:34 81 MG Calcium/Vitamin D (Caltrate Plus Tab) 1 tab BID PO 12/25/17 09:00 01/24/18 08:59 12/26/17 09:33 1 TAB Furosemide (Lasix Tab) 20 mg DAILY PRN PO 12/25/17 00:30 01/24/18 00:29 Levothyroxine Sodium (Synthroid Tab) 125 mcg DAILYBB PO 12/25/17 06:00 01/24/18 05:59 12/26/17 05:03 125 MCG Lisinopril (Zestril Tab) 5 mg QAM PO 12/25/17 09:00 01/24/18 08:59 Future Hold 12/25/17 08:56 5 MG Meclizine HCl (Antivert Tab) 25 mg TID PRN PO 12/25/17 00:30 01/24/18 00:29 Sertraline HCl (Zoloft Tab) 100 mg DAILY PO 12/25/17 09:00 01/24/18 08:59 12/26/17 09:32 100 MG Tramadol HCl (Ultram Tab) 50 mg Q6H PRN PO 12/25/17 00:30 01/24/18 00:29 12/26/17 12:35 50 MG Cholecalciferol (Vitamin D Tab) 1,000 inter.unit QAM PO 12/25/17 09:00 01/24/18 08:59 12/26/17 09:31 1,000 INTER.UNIT Pantoprazole Sodium (Protonix Tab) 40 mg QAM PO 12/25/17 09:00 01/24/18 08:59 12/26/17 09:32 40 MG Morphine Sulfate (MoRPHine SULFATE INJ) 2 mg Q4 PRN IV 12/25/17 00:30 01/08/18 00:29 Carbamazepine (Tegretol Tab) 100 mg BID PO 12/25/17 09:00 01/24/18 08:59 12/26/17 09:33 100 MG Lorazepam (Ativan Tab) 0.5 mg BID PRN PO 12/25/17 00:45 01/24/18 00:44 12/25/17 21:01 0.5 MG Atenolol (Tenormin Tab) 25 mg QPM PO 12/25/17 21:00 01/24/18 20:59 Future Hold Atenolol (Tenormin Tab) 12.5 mg HS PO 12/27/17 21:00 01/26/18 08:59 UNV
[2017-12-26] MEDS: LORAZEPAM 0.5 MG TAB PO PRN (21:00)
[2017-12-27] MEDS: LEVOTHYROXINE 125 MCG TAB PO SCH (04:40)
[2017-12-27] MEDS: ACETAMINOPHEN 325 MG TAB PO PRN (04:41)
[2017-12-27 04:56] VITALS: BP_SYST 128; BP_SYST 138; BP_SYST 156; BP_DIAS 70; BP_DIAS 77; BP_DIAS 79; PULSE 78; PULSE 84; PULSE 88
[2017-12-27 07:24] LABS: BASO % 0.2 %; BASO ABS # 0.02 K/uL (0-0.2); EOS % 5.3 %; EOS ABS # 0.44 K/uL (0-0.5); HEMATOCRIT 26.5 % (37-47); HEMOGLOBIN 8.8 g/dL (12.0-16.0); IG# 0.04 K/uL (0.00-0.02); LYMPH % 19.9 %; LYMPH ABS # 1.66 K/uL (1.2-3.4); MEAN CELL VOLUME 91.1 fL (80-100); MEAN CORPUSCULAR HEMOGLOBIN 30.2 pg (25-34); MEAN CORPUSCULAR HGB CONC 33.2 g/dl (32-36); MEAN PLATELET VOLUME 9.2 fL (7.4-10.4); MONO ABS # 1.08 K/uL (0.11-0.59); NEUT % 61.1 %; NEUT ABS # 5.09 K/uL (1.4-6.5); PLATELET COUNT 178 K/uL (130-400); RED CELL DISTRIBUTION WIDTH CV 14.4 % (11.5-14.5); RED CELL DISTRIBUTION WIDTH SD 48.6 fL (36.4-46.3); WHITE BLOOD COUNT 8.33 K/uL (4.8-10.8)
[2017-12-27 07:29] VITALS: BP 119/72; PULSE 67; TEMP 36.5; O2SAT 98
[2017-12-27 07:52] LABS: CALCIUM 8.4 mg/dl (8.5-10.1); CREATININE 0.9 mg/dl (0.60-1.20); POTASSIUM 4.1 mmol/L (3.5-5.1)
[2017-12-27] MEDS: PANTOprazole SOD 40 MG TAB PO SCH (09:11)
[2017-12-27] MEDS: CHOLECALCIFEROL 1000 INTER.UNIT TAB PO SCH (09:11)
[2017-12-27] MEDS: CALCIUM 600MG + VIT D 400 IU TAB PO SCH ×2 (09:11→21:29)
[2017-12-27] MEDS: CARBAMAZEPINE 200 MG TAB PO SCH ×2 (09:12→21:31)
[2017-12-27] MEDS: SERTRALINE HCL 100 MG TAB PO SCH (09:12)
[2017-12-27] MEDS: ASPIRIN 81 MG ECTAB PO SCH (09:12)
[2017-12-27] MEDS: TRAMADOL HCL 50 MG TAB PO PRN (09:18)
[2017-12-27] MEDS: HEPARIN SOD 5000 UNIT/0.5 ML CARP SQ SCH ×2 (09:18→21:35)
[2017-12-27 15:26] VITALS: BP_SYST 123; BP_SYST 59; BP_SYST 88; BP_DIAS 43; BP_DIAS 52; BP_DIAS 53; BP_DIAS 65; PULSE 87; PULSE 90; PULSE 91; TEMP 37; O2SAT 97
[2017-12-27] MEDS: SODIUM CHLORIDE 0.9% 1000ML 1,000 ML IV SCH (17:19)
--- NOTE | 2017-12-27 17:31 | Progress Note ---
Medicine Progress Note Date & Time of Visit: December 27, 2017 at 17:26. Subjective Seen resting in bed, comfortable States she feels fine overall today except for some mild lightheadedness when standing Denies chest pain, shortness of breath, palpitations Has some right hip pain with movement, none at rest Denies other symptoms Objective Last 8 Hrs Date Time Temp Pulse Resp B/P (MAP) Pulse Ox O2 Delivery O2 Flow Rate FiO2 12/27/17 15:26 37.0 87 18 59/43 (48) 97 Room Air 90 123/65 (84) 91 88/52 (64) Physical Exam: General- oriented x 3, not in distress, speaks in sentences with no effort Neck- supple, no JVD Lungs- clear breath sounds bilaterally, no rales/wheezes Heart- regular rhythm; no murmur, normal rate Abdomen- normal bowel sounds, soft, nontender Extremities- no pretibial edema, no calf tenderness Neuro- alert, oriented x 3; no gross focal deficits Skin- warm & dry Laboratory Results: Last 24 Hours Test 12/27/17 06:46 White Blood Count 8.33 K/uL Red Blood Count 2.91 M/uL Hemoglobin 8.8 g/dL Hematocrit 26.5 % Mean Corpuscular Volume 91.1 fL Mean Corpuscular Hemoglobin 30.2 pg Mean Corpuscular Hemoglobin Concent 33.2 g/dl Platelet Count 178 K/uL Mean Platelet Volume 9.2 fL Neutrophils (%) (Auto) 61.1 % Lymphocytes (%) (Auto) 19.9 % Monocytes (%) (Auto) 13.0 % Eosinophils (%) (Auto) 5.3 % Basophils (%) (Auto) 0.2 % Neutrophils # (Auto) 5.09 K/uL Lymphocytes # (Auto) 1.66 K/uL Monocytes # (Auto) 1.08 K/uL Eosinophils # (Auto) 0.44 K/uL Basophils # (Auto) 0.02 K/uL RDW Standard Deviation 48.6 fL RDW Coefficient of Variation 14.4 % Immature Granulocyte % (Auto) 0.5 % Immature Granulocyte # (Auto) 0.04 K/uL Hypersegmented Polys 1+ Sodium Level 137 mmol/L Potassium Level 4.1 mmol/L Chloride Level 105 mmol/L Carbon Dioxide Level 27 mmol/L Anion Gap 5.0 mmol/L Blood Urea Nitrogen 22 mg/dl Creatinine 0.90 mg/dl Est Creatinine Clear Calc Drug Dose 36.2 ml/min Estimated GFR () 66.6 Estimated GFR (Non- 57.5 BUN/Creatinine Ratio 24.3 Random Glucose 91 mg/dl Calcium Level 8.4 mg/dl Magnesium Level 1.8 mg/dl Assessment & Plan 1. Status post mechanical fall, right pelvic fracture. Ortho consulted, recommend conservative management Weight bearing as tolerated PT/OT recommending inpatient Rehab, Trimming Operator on board continue PRN Tramadol 2. Orthostatic hypotension history of hypertension. usual Atenolol and Lisinopril held Resumed atenolol, at a reduced dose, 12.5mg po daily hold Lisinopril Start IV fluids Monitor orthostatic vital signs 3. History of depression and anxiety. Continue Zoloft and Ativan p.r.n. 4. History of migraine, on tramadol p.r.n. 5. History of chronic kidney disease stage III. stable 6. History of anemia of chronic disease. hg 9-10 7. History of trigeminal neuralgia, on Tegretol. Disposition Anticipate transition to [facility] residential/rehab when medically stable and orthostasis is resolved Current Inpatient Medications: Current Inpatient Medications Medications (Trade) Dose Ordered Sig/Gris Route Start Time Stop Time Status Last Admin Dose Admin Acetaminophen (Tylenol Tab) 650 mg Q4H PRN PO 12/25/17 00:30 01/24/18 00:29 12/27/17 04:41 650 MG Al Hydrox/Mg Hydrox/Simethicone (Maalox Max Susp) 15 ml Q4H PRN PO 12/25/17 00:30 01/24/18 00:29 12/25/17 18:25 15 ML Polyethylene (Miralax Powder Packet) 17 gm DAILY PRN PO 12/25/17 00:30 01/24/18 00:29 Ondansetron HCl (Zofran Inj) 4 mg Q6H PRN IV 12/25/17 00:30 01/24/18 00:29 Aspirin (Ecotrin Tab) 81 mg DAILY PO 12/25/17 09:00 01/24/18 08:59 12/27/17 09:12 81 MG Calcium/Vitamin D (Caltrate Plus Tab) 1 tab BID PO 12/25/17 09:00 01/24/18 08:59 12/27/17 09:11 1 TAB Furosemide (Lasix Tab) 20 mg DAILY PRN PO 12/25/17 00:30 01/24/18 00:29 Levothyroxine Sodium (Synthroid Tab) 125 mcg DAILYBB PO 12/25/17 06:00 01/24/18 05:59 12/27/17 04:40 125 MCG Lisinopril (Zestril Tab) 5 mg QAM PO 12/25/17 09:00 01/24/18 08:59 Future Hold 12/25/17 08:56 5 MG Meclizine HCl (Antivert Tab) 25 mg TID PRN PO 12/25/17 00:30 01/24/18 00:29 Sertraline HCl (Zoloft Tab) 100 mg DAILY PO 12/25/17 09:00 01/24/18 08:59 12/27/17 09:12 100 MG Cholecalciferol (Vitamin D Tab) 1,000 inter.unit QAM PO 12/25/17 09:00 01/24/18 08:59 12/27/17 09:11 1,000 INTER.UNIT Pantoprazole Sodium (Protonix Tab) 40 mg QAM PO 12/25/17 09:00 01/24/18 08:59 12/27/17 09:11 40 MG Morphine Sulfate (MoRPHine SULFATE INJ) 2 mg Q4 PRN IV 12/25/17 00:30 01/08/18 00:29 Carbamazepine (Tegretol Tab) 100 mg BID PO 12/25/17 09:00 01/24/18 08:59 12/27/17 09:12 100 MG Lorazepam (Ativan Tab) 0.5 mg BID PRN PO 12/25/17 00:45 01/24/18 00:44 12/26/17 21:00 0.5 MG Atenolol (Tenormin Tab) 25 mg QPM PO 12/25/17 21:00 01/24/18 20:59 Future Hold Atenolol (Tenormin Tab) 12.5 mg HS PO 12/27/17 21:00 01/26/18 08:59 Heparin Sodium (Porcine) (Heparin Sq 5000 Unit/0.5ml) 5,000 unit Q12 SQ 12/26/17 21:00 01/24/18 05:59 12/27/17 09:18 5,000 UNIT Sodium Chloride 1,000 ml @ 75 mls/hr [id number] IV 12/27/17 16:30 01/26/18 16:29 12/27/17 17:19 75 MLS/HR
[2017-12-27] MEDS: LORAZEPAM 0.5 MG TAB PO PRN (21:33)
[2017-12-27 21:36] VITALS: BP 109/63; PULSE 76
[2017-12-27 23:10] VITALS: BP 117/71; PULSE 74; TEMP 37; O2SAT 97
[2017-12-28] MEDS: SODIUM CHLORIDE 0.9% 1000ML 1,000 ML IV SCH (06:05)
[2017-12-28] MEDS: LEVOTHYROXINE 125 MCG TAB PO SCH (06:05)
[2017-12-28 06:32] VITALS: BP_SYST 123; BP_SYST 125; BP_SYST 147; BP_DIAS 70; BP_DIAS 74; PULSE 67; PULSE 77; PULSE 79
[2017-12-28 07:02] LABS: BASO % 0.2 %; BASO ABS # 0.02 K/uL (0-0.2); EOS % 4.5 %; HEMOGLOBIN 9.1 g/dL (12.0-16.0); IG# 0.05 K/uL (0.00-0.02); LYMPH % 22.2 %; LYMPH ABS # 1.98 K/uL (1.2-3.4); MEAN CELL VOLUME 91.5 fL (80-100); MEAN CORPUSCULAR HEMOGLOBIN 29.7 pg (25-34); MEAN CORPUSCULAR HGB CONC 32.5 g/dl (32-36); MONO % 12.8 %; MONO ABS # 1.14 K/uL (0.11-0.59); NEUT % 59.7 %; NEUT ABS # 5.31 K/uL (1.4-6.5); PLATELET COUNT 201 K/uL (130-400); RED CELL DISTRIBUTION WIDTH CV 14.6 % (11.5-14.5); RED CELL DISTRIBUTION WIDTH SD 48.7 fL (36.4-46.3)
[2017-12-28 07:28] LABS: CALCIUM 8.5 mg/dl (8.5-10.1); CREATININE 0.9 mg/dl (0.60-1.20); POTASSIUM 4.4 mmol/L (3.5-5.1)
[2017-12-28 08:12] VITALS: O2SAT 97
[2017-12-28 08:13] VITALS: BP 124/68; PULSE 70; TEMP 36.9; O2SAT 97
[2017-12-28] MEDS ORDERED: MAGNESIUM OXIDE 400 MG TAB PO SCH (09:00)
[2017-12-28] MEDS: PANTOprazole SOD 40 MG TAB PO SCH (09:13)
[2017-12-28] MEDS: SERTRALINE HCL 100 MG TAB PO SCH (09:13)
[2017-12-28] MEDS: CARBAMAZEPINE 200 MG TAB PO SCH (09:13)
[2017-12-28] MEDS: ASPIRIN 81 MG ECTAB PO SCH (09:13)
[2017-12-28] MEDS: CALCIUM 600MG + VIT D 400 IU TAB PO SCH (09:13)
[2017-12-28] MEDS: CHOLECALCIFEROL 1000 INTER.UNIT TAB PO SCH (09:13)
[2017-12-28] MEDS: LORAZEPAM 0.5 MG TAB PO PRN (09:19)
[2017-12-28] MEDS: ACETAMINOPHEN 325 MG TAB PO PRN (09:19)
[2017-12-28] MEDS: HEPARIN SOD 5000 UNIT/0.5 ML CARP SQ SCH (09:19)
[2017-12-28 12:05] VITALS: BP 124/68; PULSE 70; TEMP 36.9; O2SAT 97
[2017-12-28 12:54] VITALS: BP 128/80; PULSE 72; TEMP 36.9; O2SAT 97
--- NOTE | 2017-12-28 14:49 | Progress Note ---
Medicine Progress Note Date & Time of Visit: December 28, 2017 at 14:43. Subjective seen resting in bed comfortable states she feels much better today denies dizziness when standing and ambulating no chest pain, dyspnea right hip/groin pain improving denies other symptoms states she is ready for discharge today Objective Last 8 Hrs Date Time Temp Pulse Resp B/P (MAP) Pulse Ox O2 Delivery O2 Flow Rate FiO2 12/28/17 12:54 36.9 72 16 128/80 (96) 97 Room Air 12/28/17 12:05 36.9 70 16 97 Room Air 12/28/17 08:13 36.9 70 16 124/68 (86) 97 Room Air 12/28/17 08:12 97 Room Air 12/28/17 07:20 Room Air Physical Exam: General- oriented x 3, not in distress, speaks in sentences with no effort Neck- no JVD Lungs- clear breath sounds bilaterally Heart- regular rhythm; no murmur, normal rate Abdomen- normal bowel sounds, soft, nontender Extremities- no pretibial edema, no calf tenderness Neuro- alert, oriented x 3; no gross focal deficits Skin- warm & dry Laboratory Results: Last 24 Hours Test 12/28/17 06:43 White Blood Count 8.90 K/uL Red Blood Count 3.06 M/uL Hemoglobin 9.1 g/dL Hematocrit 28.0 % Mean Corpuscular Volume 91.5 fL Mean Corpuscular Hemoglobin 29.7 pg Mean Corpuscular Hemoglobin Concent 32.5 g/dl Platelet Count 201 K/uL Mean Platelet Volume 9.0 fL Neutrophils (%) (Auto) 59.7 % Lymphocytes (%) (Auto) 22.2 % Monocytes (%) (Auto) 12.8 % Eosinophils (%) (Auto) 4.5 % Basophils (%) (Auto) 0.2 % Neutrophils # (Auto) 5.31 K/uL Lymphocytes # (Auto) 1.98 K/uL Monocytes # (Auto) 1.14 K/uL Eosinophils # (Auto) 0.40 K/uL Basophils # (Auto) 0.02 K/uL RDW Standard Deviation 48.7 fL RDW Coefficient of Variation 14.6 % Immature Granulocyte % (Auto) 0.6 % Immature Granulocyte # (Auto) 0.05 K/uL Sodium Level 137 mmol/L Potassium Level 4.4 mmol/L Chloride Level 105 mmol/L Carbon Dioxide Level 29 mmol/L Anion Gap 3.0 mmol/L Blood Urea Nitrogen 20 mg/dl Creatinine 0.90 mg/dl Est Creatinine Clear Calc Drug Dose 36.2 ml/min Estimated GFR () 66.6 Estimated GFR (Non- 57.5 BUN/Creatinine Ratio 22.5 Random Glucose 92 mg/dl Calcium Level 8.5 mg/dl Magnesium Level 1.7 mg/dl Assessment & Plan 1. Right pubic ring fracture s/p Mechanical Fall Ortho consulted, Dr. Willis, recommend conservative management Weight bearing as tolerated PT/OT recommending inpatient Rehab continue PRN Tylenol avoid narcotics as patient has tendency for orthostasis avoid NSAIDs as patient has CKD Fall Precautions please 2. Orthostatic hypotension History of hypertension. observed to have orthostasis and dizziness while admitted usual Atenolol and Lisinopril held Resumed atenolol, at a reduced dose, 12.5mg po daily given IV fluids discontinued Tramadol -- orthostasis resolved -- continue Atenolol 12.5mg at HS HOLD Lisinopril (usually on 5mg in AM) avoid narcotics encourage oral fluid intake -- monitor BP daily 3. History of depression and anxiety. -- Continue Zoloft and Ativan p.r.n. 4. History of migraine 5. History of chronic kidney disease stage III. stable 6. History of anemia of chronic disease. hg 9-10 monitor and ff up as outpatient 7. History of trigeminal neuralgia, on Tegretol. Disposition d/c to [facility] ff up with PCP Dr. Downey on 01/02/18 at 12:45pm ff up with Ortho Dr. Willis in 2 weeks Current Inpatient Medications: Current Inpatient Medications Medications (Trade) Dose Ordered Sig/Gris Route Start Time Stop Time Status Last Admin Dose Admin Acetaminophen (Tylenol Tab) 650 mg Q4H PRN PO 12/25/17 00:30 01/24/18 00:29 12/28/17 09:19 650 MG Al Hydrox/Mg Hydrox/Simethicone (Maalox Max Susp) 15 ml Q4H PRN PO 12/25/17 00:30 01/24/18 00:29 12/25/17 18:25 15 ML Polyethylene (Miralax Powder Packet) 17 gm DAILY PRN PO 12/25/17 00:30 01/24/18 00:29 Ondansetron HCl (Zofran Inj) 4 mg Q6H PRN IV 12/25/17 00:30 01/24/18 00:29 Aspirin (Ecotrin Tab) 81 mg DAILY PO 12/25/17 09:00 01/24/18 08:59 12/28/17 09:13 81 MG Calcium/Vitamin D (Caltrate Plus Tab) 1 tab BID PO 12/25/17 09:00 01/24/18 08:59 12/28/17 09:13 1 TAB Furosemide (Lasix Tab) 20 mg DAILY PRN PO 12/25/17 00:30 01/24/18 00:29 Levothyroxine Sodium (Synthroid Tab) 125 mcg DAILYBB PO 12/25/17 06:00 01/24/18 05:59 12/28/17 06:05 125 MCG Lisinopril (Zestril Tab) 5 mg QAM PO 12/25/17 09:00 01/24/18 08:59 Future Hold 12/25/17 08:56 5 MG Meclizine HCl (Antivert Tab) 25 mg TID PRN PO 12/25/17 00:30 01/24/18 00:29 Sertraline HCl (Zoloft Tab) 100 mg DAILY PO 12/25/17 09:00 01/24/18 08:59 12/28/17 09:13 100 MG Cholecalciferol (Vitamin D Tab) 1,000 inter.unit QAM PO 12/25/17 09:00 01/24/18 08:59 12/28/17 09:13 1,000 INTER.UNIT Pantoprazole Sodium (Protonix Tab) 40 mg QAM PO 12/25/17 09:00 01/24/18 08:59 12/28/17 09:13 40 MG Morphine Sulfate (MoRPHine SULFATE INJ) 2 mg Q4 PRN IV 12/25/17 00:30 01/08/18 00:29 Carbamazepine (Tegretol Tab) 100 mg BID PO 12/25/17 09:00 01/24/18 08:59 12/28/17 09:13 100 MG Lorazepam (Ativan Tab) 0.5 mg BID PRN PO 12/25/17 00:45 01/24/18 00:44 12/28/17 09:19 0.5 MG Atenolol (Tenormin Tab) 25 mg QPM PO 12/25/17 21:00 01/24/18 20:59 Future Hold Atenolol (Tenormin Tab) 12.5 mg HS PO 12/27/17 21:00 01/26/18 08:59 12/27/17 21:30 12.5 MG Heparin Sodium (Porcine) (Heparin Sq 5000 Unit/0.5ml) 5,000 unit Q12 SQ 12/26/17 21:00 01/24/18 05:59 12/28/17 09:19 5,000 UNIT Sodium Chloride 1,000 ml @ 75 mls/hr [id number] IV 12/27/17 16:30 01/26/18 16:29 12/28/17 06:05 75 MLS/HR Magnesium Oxide (Mag-Ox Tab) 400 mg BID PO 12/28/17 09:00 01/27/18 08:59 12/28/17 09:44 400 MG
[2017-12-28] MEDS ORDERED: TNR25 PO (15:02)
[2017-12-28] MEDS ORDERED: ACET-1047 PO (15:03)
[2017-12-28] MEDS ORDERED: MGNO400 PO (15:03)
--- NOTE | 2017-12-28 15:08 | Discharge Instructions ---
Discharge Instructions Date of Service December 28, 2017. Admission Reason for Admission: Fall, Pelvic Fracture Discharge Discharge Diagnosis / Problem: RIGHT PUBIC RING FRACTURE, S/P FALL Discharge Goals Goal(s): Diagnostic testing, Therapeutic intervention Activity Recommendations Activity Level: Assistance Required Therapies: Physical Therapy, Occupational Therapy Weightbearing Status: Right weightbearing (as tolerated) . Additional Information Patient informed of condition: Yes Advance Directives: No (UNKNOWN) DNR: No (PATIENT IS FULL CODE) Level of Care: Skilled Communicable Disease: No Prognosis: Improving Instructions / Follow-Up Instructions / Follow-Up FALL PRECAUTIONS PLEASE. MONITOR BP DAILY (RE: MONITOR FOR ORTHOSTASIS). ENCOURAGE ORAL FLUID INTAKE. PLEASE REFER TO ACCOMPANYING HOSPITAL DISCHARGE SUMMARY FOR FURTHER DETAILS. FOLLOW UP WITH PRIMARY CARE PHYSICIAN DR. MCNULTY ON Monday01/02/18 AT 12:45 PM. FOLLOW UP WITH ORTHOPEDIC SURGEON DR. AVALOS IN 2 WEEKS. Current Hospital Diet Patient's current hospital diet: AHA Diet (Heart Healthy) Discharge Diet Recommended Diet: Regular Diet Procedures Procedures Performed: HIP. SPINE, CHEST XRAY Pending Studies Studies pending at discharge: no Physician Orders On Transfer Special Precautions: FALL PRECAUTIONS PLEASE. MONITOR BP DAILY (RE: MONITOR FOR ORTHOSTASIS). ENCOURAGE ORAL FLUID INTAKE. PLEASE REFER TO ACCOMPANYING HOSPITAL DISCHARGE SUMMARY FOR FURTHER DETAILS. FOLLOW UP WITH PRIMARY CARE PHYSICIAN DR. MCNULTY ON Monday01/02/18 AT 12:45 PM. FOLLOW UP WITH ORTHOPEDIC SURGEON DR. AVALOS IN 2 WEEKS. Medical Emergencies . Who to Call and When: Medical Emergencies: If at any time you feel your situation is an emergency, please call 911 immediately. . Non-Emergent Contact Non-Emergency issues call your: Primary Care Provider, Surgeon (ORTHOPEDIC) Call Non-Emergent contact if: you have a fever, your pain is not controlled, your pain is worsening, you have any medication questions . Past History Medical & Surgical History: (1) Fall (2) Pubic ramus fracture (3) Hypertension . "Provider Documentation" section prepared by Guero Li. . Core Measure Problem Core Measures: None
[2017-12-28 15:11] VITALS: BP_SYST 100; BP_SYST 89; BP_SYST 93; BP_DIAS 46; BP_DIAS 57; BP_DIAS 58; PULSE 74; PULSE 85; PULSE 86; TEMP 36.8; O2SAT 98
--- NOTE | 2017-12-28 15:12 | Discharge Summary ---
Discharge Summary Date of Service December 28, 2017. Discharge Summary Admission Date: Dec 25, 2017 at 00:22 Discharge Date: December 28, 2017 [facility] Principal Diagnosis: Right pubic ring fracture; s/p Mechanical Fall Secondary Diagnoses/Problems: Please refer to hospital course below. Procedures: SINGLE VIEW PELVIS; 2 VIEWS RIGHT HIP CLINICAL HISTORY: Right hip pain. Fall. FINDINGS: An AP view of the pelvis with AP and frog-leg views of the right hip and femur are obtained. No prior studies are available for comparison at the time of dictation. The skeletal structures are osteopenic. Subtle nondistracted right pubic ring fractures are suspected. There are chronic appearing left pubic ring fractures. There is chronic posttraumatic deformity of the right femoral shaft with intertrochanteric and intramedullary nails in place. There is no radiographic evidence of right femoral fracture. Orthopedic hardware appears intact. The left hip is intact as imaged. Moderate arthritic change and joint space narrowing is seen in the hips. Lumbosacral spondylosis is partially visualized. Sclerotic change is noted in the sacroiliac joints. There are numerous pelvic phleboliths. No bowel obstruction is seen. The soft tissues of the right thigh are normal as imaged. IMPRESSION: 1. Suspect acute nondistracted right pubic ring fractures. 2. No additional acute fracture is identified involving the hips or bony pelvis. 3. Chronic posttraumatic deformity and postoperative change is noted in the right femur. 4. Osteopenia and degenerative change as above. Electronically signed by: Avel Cook M.D. 12/24/2017 11:10 PM SINGLE VIEW CHEST CLINICAL HISTORY: Fall. FINDINGS: An AP, portable, upright chest radiograph is compared to study dated 05/11/2010. The examination is degraded by portable technique and apical lordotic positioning. The heart is enlarged and there is atherosclerotic calcification of the thoracic aorta. The pulmonary vasculature is noncongested. Chronic interstitial thickening is similar to previous. There is left basilar atelectasis. No airspace consolidation or large pleural effusion is identified. No pneumothorax is seen. The skeletal structures are osteopenic. There is chronic posttraumatic deformity of the proximal humeri with advanced degenerative change involving the shoulders. Degenerative change and scoliosis are noted in the thoracic spine. Cholecystectomy clips are identified in the right upper quadrant. IMPRESSION: Cardiomegaly with no acute cardiopulmonary abnormality. Electronically signed by: Avel Cook M.D. 12/24/2017 11:18 PM Dictated Date/Time: 12/24/2017 11:17 PM LUMBAR SPINE 3 VIEWS CLINICAL HISTORY: Fall. FINDINGS: AP, lateral, and coned-down views of the lumbar spine are obtained. No prior studies are available for comparison at the time of dictation. The skeletal structures are osteopenic. There is a moderate and age indeterminant compression deformity of L1. No retropulsed fragments are identified. Vertebral body height is otherwise maintained throughout the lumbar spine. Minimal anterolisthesis is seen at L4-L5. Alignment is otherwise preserved. Hyperlordosis is noted. Anterior osteophytes are seen throughout. The transverse and spinous processes are intact as visualized. There is mild to moderate lumbar levocurvature centered at L3. Advanced facet arthropathy seen in the lower lumbar region. There is mild to moderate disc space narrowing seen at all lumbar levels. The bony pelvis is intact as imaged. Sclerotic change is noted in the sacroiliac joints. Compression deformities are also seen in the lower thoracic spine. No bowel obstruction is identified. Cholecystectomy clips are observed. The heart is enlarged. IMPRESSION: 1. There is a moderate and age indeterminant compression deformity of L1. Additional age indeterminant compression deformities are noted in the lower thoracic spine on the frontal view. Clinical correlation will be required. 2. Osteopenia with lumbosacral spondylosis and scoliosis as above. Electronically signed by: Avel Cook M.D. 12/24/2017 11:12 PM Consultations: ORTHO DR. WILLIS Pending Studies/Follow-Up: FALL PRECAUTIONS PLEASE. MONITOR BP DAILY (RE: MONITOR FOR ORTHOSTASIS). ENCOURAGE ORAL FLUID INTAKE. PLEASE REFER TO HOSPITAL COURSE BELOW FOR FURTHER DETAILS. FOLLOW UP WITH PRIMARY CARE PHYSICIAN DR. DOWNEY ON Monday01/02/18 AT 12:45 PM. FOLLOW UP WITH ORTHOPEDIC SURGEON DR. WILLIS IN 2 WEEKS. Medication Reconciliation New Medications: Acetaminophen (Mapap) 325 Mg Tab 650 MG PO Q4H PRN for Pain or Fever for 7 Days Atenolol (Atenolol) 25 Mg Tab 12.5 MG PO HS for 30 Days, #30 TAB 1 Refill Magnesium Oxide (Magnesium-Oxide) 400 Mg Tab 400 MG PO BID for 5 Days, #10 TAB 0 Refills Continued Medications: Acetaminophen (Tylenol Arthritis Ext Rel) 650 Mg Cplt 650 MG PO HS, CAP Aspirin Enteric Coated (Ecotrin Or Generic) 81 Mg Tab 81 MG PO DAILY, TAB Calcium Carbonate-Vitamin D W/ (Caltrate 600 Plus) 1 Tab Tab 1 TAB PO BID, TAB Carbamazepine (Tegretol) 200 Mg Tab 100 MG PO BID, #14 Cholecalciferol (D3) 1,000 Unit Cap 1000 UNITS PO QAM Furosemide (Lasix) 40 Mg Tab 0.5-1 TAB PO DAILY PRN for FLUID RETENTION Levothyroxine Sodium (Synthroid) 125 Mcg Tab 125 MCG PO QAM, TAB Lisinopril (Prinivil) 10 Mg Tab 5 MG PO QAM, TAB Lorazepam (Lorazepam) 0.5 Mg Tab 0.5 MG PO BID PRN for Anxiety/Insomnia, #10 Meclizine Hcl (Meclizine Hcl) 25 Mg Tab 25 MG PO TID PRN for Dizziness or Vertigo for 10 Days, #30 TAB Omeprazole (Omeprazole Dr) 20 Mg Cap 20 MG PO QAM Sertraline (Zoloft) 100 Mg Tab 1 TAB PO DAILY Discontinued Medications: Atenolol (Atenolol) 50 Mg Tab 25 MG PO QAM Prednisone (Prednisone) Unknown Strength Tab Unknown Dose PO DAILY, TAB PT STARTED 12/19/17, TAKE 3 TABS X 3 DAYS, 2 TABS X 3 DAYS, 1 TAB X 3 DAYS. 12/25/17 DOSE WILL BE 1 TAB. Tramadol (Ultram) 50 Mg Tab 50 MG PO Q6H PRN for Migraine, TAB Admission Information HPI (per Admitting provider): CHIEF COMPLAINT: Status post fall and pelvic fracture. HISTORY OF PRESENT ILLNESS: This is an 87-year-old female with past medical history significant for depression, anxiety, hypothyroidism, trigeminal neuralgia, senile osteoporosis, hypertension, migraines, osteoarthritis of multiple joints, anxiety trait, Raynaud's syndrome, and now chronic kidney disease stage III, hiatal hernia, history of compression fracture of the spine, anemia of chronic renal failure, now presents with fall and pelvic fracture. Patient says she was in her closet putting her clothes when she accidentally slipped and fell down and no loss of consciousness, but when she wanted to get up, there was severe pain in her right groin region and she was brought to the ER and imaging showed acute nondisplaced right pubic ring fractures and lumbar spine x-ray shows age indeterminate compression fracture of L1. Patient is received morphine in the ER and currently pain is under control. Patient denies any headaches. No dizziness, no blurred visions, no earache, no runny nose, no sore throat, no difficulty swallowing. No chest pain, no shortness of breath, no cough, no fever, no chills, no nausea, no vomiting, no abdominal pain. Appetite is okay. Ambulates with a cane when she goes outside, but at home she ambulates without any help. Sometimes she has runny bowel movements but no blood in the stools. Normal bladder movements. No blood in the urine. No burning micturition. No swelling of the legs. No skin rash. Currently, resting comfortably and hemodynamically stable. Physical Exam (per Admitting): GENERAL: Patient is old and frail, not in distress. VITAL SIGNS: Temperature 36.7, pulse 65, respiratory rate 14, blood pressure 127/65, oxygen 98% room air. HEENT: No pallor, no icterus. Pupils equal, round, and reactive to light. NECK: No JVD, no neck masses, no carotid bruit. CARDIOVASCULAR: S1, S2 heard. Regular rate and rhythm, no murmur, no gallop. RESPIRATORY SYSTEM: Clear to auscultation bilaterally. No wheezing, no crackles. ABDOMEN: Soft, bowel sounds present, nontender. No distention. CENTRAL NERVOUS SYSTEM: Cranial nerves II-XII grossly intact. Nonfocal. EXTREMITIES: No edema, no erythema. Able to lift her left upper extremity, but not able to lift her right lower extremity. Hospital Course Osteoporotic Right pubic ring fracture in the setting of Fall Ortho consulted, Dr. Willis, recommend conservative management Weight bearing as tolerated PT/OT recommending inpatient Rehab continue PRN Tylenol avoid narcotics as patient has tendency for orthostasis avoid NSAIDs as patient has CKD Fall Precautions please Orthostatic hypotension History of hypertension. observed to have orthostasis and dizziness while admitted usual Atenolol and Lisinopril held Resumed atenolol, at a reduced dose, 12.5mg po daily given IV fluids discontinued Tramadol -- orthostasis resolved -- continue Atenolol 12.5mg at HS HOLD Lisinopril (usually on 5mg in AM) avoid narcotics encourage oral fluid intake -- monitor BP daily Lumbar, Thoracic Compression Fractures -- seen on spine xray -- denies back pain, leg weakness/numbness -- monitor History of depression and anxiety. -- Continue Zoloft and Ativan p.r.n. History of migraine History of chronic kidney disease stage III. stable History of anemia of chronic disease. hg 9-10 monitor and ff up as outpatient History of trigeminal neuralgia, on Tegretol. Disposition d/c to [facility] ff up with PCP Dr. Downey on 01/02/18 at 12:45pm ff up with Ortho Dr. Willis in 2 weeks Total time spent on discharge = 40 minutes This includes examination of the patient, discharge planning, medication reconciliation, and communication with other providers. Discharge Instructions Discharge Instructions Date of Service December 28, 2017. Admission Reason for Admission: Fall, Pelvic Fracture Discharge Discharge Diagnosis / Problem: RIGHT PUBIC RING FRACTURE, S/P FALL Discharge Goals Goal(s): Diagnostic testing, Therapeutic intervention Activity Recommendations Activity Level: Assistance Required Therapies: Physical Therapy, Occupational Therapy Weightbearing Status: Right weightbearing (as tolerated) . Additional Information Patient informed of condition: Yes Advance Directives: No (UNKNOWN) DNR: No (PATIENT IS FULL CODE) Level of Care: Skilled Communicable Disease: No Prognosis: Improving Instructions / Follow-Up Instructions / Follow-Up FALL PRECAUTIONS PLEASE. MONITOR BP DAILY (RE: MONITOR FOR ORTHOSTASIS). ENCOURAGE ORAL FLUID INTAKE. PLEASE REFER TO ACCOMPANYING HOSPITAL DISCHARGE SUMMARY FOR FURTHER DETAILS. FOLLOW UP WITH PRIMARY CARE PHYSICIAN DR. DOWNEY ON Monday01/02/18 AT 12:45 PM. FOLLOW UP WITH ORTHOPEDIC SURGEON DR. WILLIS IN 2 WEEKS. Current Hospital Diet Patient's current hospital diet: AHA Diet (Heart Healthy) Discharge Diet Recommended Diet: Regular Diet Procedures Procedures Performed: HIP. SPINE, CHEST XRAY Pending Studies Studies pending at discharge: no Physician Orders On Transfer Special Precautions: FALL PRECAUTIONS PLEASE. MONITOR BP DAILY (RE: MONITOR FOR ORTHOSTASIS). ENCOURAGE ORAL FLUID INTAKE. PLEASE REFER TO ACCOMPANYING HOSPITAL DISCHARGE SUMMARY FOR FURTHER DETAILS. FOLLOW UP WITH PRIMARY CARE PHYSICIAN DR. DOWNEY ON Monday01/02/18 AT 12:45 PM. FOLLOW UP WITH ORTHOPEDIC SURGEON DR. WILLIS IN 2 WEEKS. Medical Emergencies . Who to Call and When: Medical Emergencies: If at any time you feel your situation is an emergency, please call 911 immediately. . Non-Emergent Contact Non-Emergency issues call your: Primary Care Provider, Surgeon (ORTHOPEDIC) Call Non-Emergent contact if: you have a fever, your pain is not controlled, your pain is worsening, you have any medication questions . Past History Medical & Surgical History: (1) Fall (2) Pubic ramus fracture (3) Hypertension . "Provider Documentation" section prepared by Guero Li. . Core Measure Problem Core Measures: None
== END 2017-12-28 17:01 | DRG 544 ==
LOC: EDBD 21:37 → C.EDA 21:38 → C.MSW 12-25 00:22 → ENRESERV 12-25 00:47
PROVIDERS: ADMIT Internal Medicine; ATTEND Internal Medicine
DX: M84.454A Pathological fracture, pelvis, initial encounter for fracture (principal); F32.9 Major depressive disorder, single episode, unspecified; E03.9 Hypothyroidism, unspecified; F41.9 Anxiety disorder, unspecified; I12.9 Hypertensive chronic kidney disease with stage 1 through stage 4 chronic kidney disease, or unspecified chronic kidney disease; G50.0 Trigeminal neuralgia; M81.0 Age-related osteoporosis without current pathological fracture; N18.3 Chronic kidney disease, stage 3 (moderate); I73.00 Raynaud's syndrome without gangrene; G43.909 Migraine, unspecified, not intractable, without status migrainosus; I95.1 Orthostatic hypotension; D63.8 Anemia in other chronic diseases classified elsewhere; Z88.4 Allergy status to anesthetic agent; Z79.82 Long term (current) use of aspirin; Z90.49 Acquired absence of other specified parts of digestive tract; Z83.3 Family history of diabetes mellitus; Z82.49 Family history of ischemic heart disease and other diseases of the circulatory system